=== PATIENT | female | born 1935 | race Caucasian/White ===

== ENCOUNTER 2016-09-14 09:21 | Emergency (ER) | payer MEDICARE ==
[2016-09-14] MEDS ORDERED: SURGICEL 3X4 1 EACH PACKET ONE (09:36)
[2016-09-14 09:56] LABS: ABSOLUTE NEUTROPHIL COUNT 4.4 K/mm3 (1.8-7.7); BASO # 0.1 K/mm3 (0.0-0.2); BASO % 0.7 % (0.2-1.0); EOS # 0.4 (0.0-0.5); HEMOGLOBIN 14.9 gm/l (12.0-16.0); IMM NEUT # 0.1 K/mm3 (0-0.2); IMM NEUT% 0.7 % (0-1); LYMPH # 1.8 (1.0-4.8); LYMPH % 24.3 % (15-45); MEAN CELL VOLUME 96.7 fl (81.0-99.0); MEAN CORPUSCULAR HEMOGLOBIN 30.7 pg (27.0-31.0); MEAN CORPUSCULAR HGB CONC 31.7 g/dl (33.0-37.0); MEAN PLATELET VOLUME 10.6 fl (7.4-10.4); MONO # 0.7 (0.0-0.8); MONO % 9.5 % (4-12); NEUT % 59.8 % (43-75); PLATELET COUNT 196 K/mm3 (130-400); RED CELL DISTRIBUTION WIDTH 13.4 % (11.5-14.5)
[2016-09-14 10:04] LABS: ALB/GLOB RATIO 1.2 (>1.0); ALBUMIN 3.8 gm/dL (3.5-5.7); CALCIUM 9.2 mg/dL (8.6-10.3); MAGNESIUM 2.1 mg/dL (1.9-2.7)
[2016-09-14 10:06] LABS: TROPONIN I 0.01 ng/ml (0.0-0.06)
[2016-09-14 10:10] LABS: CKMB ISOENZYME 1.2 ng/ml (0.6-6.3)
--- NOTE | 2016-09-14 11:09 | RAD ---
CHEST 2 VIEWS HISTORY: Chest pain today left arm numbness Frontal and lateral chest radiographs dated 09/14/2016. COMPARISON: None. FINDINGS: FOCAL AIRSPACE OPACITY: No gross airspace consolidation. Moderately extensive reticular opacities. Probable calcified granuloma of the right upper lung field. PLEURAL EFFUSION: None. CARDIOMEDIASTINAL SILHOUETTE: Nonenlarged. Mildly tortuous aorta with atherosclerotic calcifications. PNEUMOTHORAX: None identified. OSSEOUS STRUCTURES: No grossly destructive lesions. UPPER ABDOMEN: Status post cholecystectomy. IMPRESSION: No gross airspace disease or pulmonary edema. Evidence of prior granulomatous exposure. Reticular opacities may reflect fibrotic or senescent change. Background changes of bronchitis and central airways disease are also possible.
== END 2016-09-14 13:22 | disposition home or self-care (01) ==
LOC: ED 09:21
DX: R07.9 Chest pain, unspecified (principal); F17.210 Nicotine dependence, cigarettes, uncomplicated; Z85.72 Personal history of non-Hodgkin lymphomas